=== PATIENT | male | born 1955 | race Caucasian/White ===

== ENCOUNTER 2022-07-08 12:03 | Emergency (ER) | payer MEDICARE ==
[~2022-07-08] VITALS: Ht 185.4 cm; Wt 83.9 kg
[~2022-07-08 12:03] MED LIST: ALBU90OI61; AMIT10 PO; ASPI81CH PO; ATOR20 PO; AZIT250 PO; BENZ100A PO; BUPR150ER PO; Cyclobenzaprine5 MG PO; Flomax0.4 MG PO; HYDACE10 PO; HYDACE10B PO; LEVSOD137 PO; LEVSOD175 PO; LEVSOD25 PO; LISI20 PO; LISI5 PO; METO10 PO; METO25ER PO; NAPR500 PO; OXYC10TA19 PO; PREVASTATIN PO; PROP10 PO; Percocet 5-3251 EACH PO; Prednisone20 MG PO; RANI150 PO; Valium5 MG PO; Zithromax250 MG PO; Zofran Odt8 MG SL
== END 2022-07-08 14:10 | disposition home or self-care (01) ==
LOC: ER 12:03
DX: H61.23 Impacted cerumen, bilateral (principal); I25.10 Atherosclerotic heart disease of native coronary artery without angina pectoris; I25.2 Old myocardial infarction; E03.9 Hypothyroidism, unspecified; E78.5 Hyperlipidemia, unspecified; F17.200 Nicotine dependence, unspecified, uncomplicated; Z79.899 Other long term (current) drug therapy; Z88.5 Allergy status to narcotic agent; Z79.890 Hormone replacement therapy; Z79.82 Long term (current) use of aspirin; Z95.1 Presence of aortocoronary bypass graft; Z95.5 Presence of coronary angioplasty implant and graft
CPT/HCPCS: 99282; A9270

== ENCOUNTER 2023-03-08 15:26 | Inpatient (IN) | payer OTHER ==
[~2023-03-08] VITALS: Ht 180.3 cm; Wt 74.4 kg
[~2023-03-08 15:26] MED LIST changes: -ATORVASTATIN CA20 MG PO; -Bentyl20 MG PO; -FINA5 PO; -LINZESS290 MCG PO; -METOPROLOL SUCC25 MG PO; -OMEP20ER PO; -TAMSULOSIN HCL0.4 M1 PO
[2023-03-08 17:34] LABS: Influenza A, PCR NEGATIVE (NEGATIVE); Influenza B, PCR NEGATIVE (NEGATIVE); Resp Syncytial Virus, PCR NEGATIVE (NEGATIVE); SARS-Cov-2 (COVID-19) PCR, MMC NEGATIVE (NEGATIVE)
[2023-03-08] MEDS ORDERED: Bentyl20 MG PO (19:34)
[2023-03-08] MEDS ORDERED: FINA5 PO (19:34)
[2023-03-08] MEDS ORDERED: OMEP20ER PO (19:34)
[2023-03-08] MEDS ORDERED: TAMSULOSIN HCL0.4 M1 PO (19:34)
[2023-03-08] MEDS ORDERED: LINZESS290 MCG PO (19:35)
[2023-03-08] MEDS ORDERED: ATORVASTATIN CA20 MG PO (19:35)
[2023-03-08] MEDS ORDERED: METOPROLOL SUCC25 MG PO (19:35)
[2023-03-08 21:20] VITALS: BP 120/59
--- NOTE | 2023-03-09 04:37 | NUR ---
SHIFT SUMMARY 67 YR M ADMITTED ON 03/08/23 FOR HYPONATEREMIA. DNR. PT C/O PAIN "ALL OVER" AND MOANS OUT LOUD. HE REFUSES OPIOD PAIN MEDICATION DUE TO HX OF IBS AND OTHER GI ISSUES SO HE WAS GIVEN VALIUM. NO C/O NASEAU THIS SHIFT. HE IS INDEPENDANT BUT WAS ASKED BY THIS NURSE TO CALL FOR A SBA WHEN AMBULATING TO THE BATHROOM. HE CALLS APPROPRIATELY. HE IS CURRENTLY ON A CLEAR LIQUID DIET. PT STATES HIS BM'S ARE ALWAYS LIQUID AND HAVE BEEN THAT WAY FOR A LONG TIME. THIS IS NORMAL FOR HIM.
[2023-03-09 04:46] VITALS: BP 126/59
[2023-03-09 05:36] LABS: BASOPHILS ABSOLUTE AUTO 0.02 K/mm3 (0.00-0.23); BASOPHILS PERCENT AUTO 1 % (0-2); EOSINOPHILS ABSOLUTE AUTO 0.02 K/mm3 (0.00-0.68); EOSINOPHILS PERCENT AUTO 1 % (0-6); Hematocrit 40.3 % (37.0-53.0); Hemoglobin 14.6 g/dL (13.5-17.5); IMMATURE GRAN ABSOLUTE AUTO 0.01 K/mm3 (0.00-0.10); IMMATURE GRAN PERCENT AUTO 0 % (0-1); LYMPHOCYTES ABSOLUTE AUTO 0.97 K/mm3 (0.84-5.20); LYMPHOCYTES PERCENT AUTO 35 % (21-46); MONOCYTES ABSOLUTE AUTO 0.49 K/mm3 (0.16-1.47); MONOCYTES PERCENT AUTO 18 % (4-13); Mean Corpuscular HGB 31.5 pg (26.0-34.0); Mean Corpuscular HGB Conc 36.2 g/dL (31.5-36.5); Mean Corpuscular Volume 87 fL (80-100); Mean Platelet Volume 10.5 fL (9.1-12.4); NEUTROPHILS ABSOLUTE AUTO 1.27 K/mm3 (1.96-9.15); NEUTROPHILS PERCENT AUTO 46 % (41-73); Platelet Count 108 K/mm3 (150-400); RDW Coefficient Variation 13.6 % (11.7-14.2); RDW Standard Deviation 43.8 fL (35.1-46.3); Red Blood Cell Count 4.63 M/mm3 (4.30-5.90); White Blood Cell Count 2.78 K/mm3 (4.00-11.30)
[2023-03-09 06:32] LABS: Albumin, Blood 3.5 g/dL (3.4-5.0); Albumin/Globulin Ratio 1.2 (0.8-1.8); Bilirubin, Total 0.5 mg/dL (0.1-1.0); Bun/Creatinine Ratio 13.7 (12.0-20.0); Calcium, Blood 8.4 mg/dL (8.5-10.1); Creatinine, Blood 0.73 mg/dL (0.60-1.20); Potassium, Blood 3.9 mmol/L (3.5-5.5); Total Protein, Blood 6.5 g/dL (6.4-8.2)
[2023-03-09 07:38] VITALS: BP 139/78
[2023-03-09 08:33] LABS: Source, Urine Straight Cath
[2023-03-09 08:43] LABS: Appearance, Urine Clear (Clear); Bilirubin, Urine Neg (Neg); Blood, Urine Neg (Neg); Color, Urine Yellow (P-Yellow); Glucose Qualitative, Urine Neg (Neg); Ketones, Urine 2+ (Neg); Leukocyte Esterase, Urine Neg (Neg); Nitrite, Urine Neg (Neg); Protein, Urine Neg (Neg); Specific Gravity, Urine 1.015 (1.003-1.022); Urobilinogen, Urine NORM (Normal)
--- NOTE | 2023-03-09 18:23 | NUR ---
SHIFT SUMMARY INDEPENDENT IN ROOM. REPORTS HE HAS BEEN ABLE TO VOID SINCE BEING CATHETERIZED THIS MORNING. STATES HIS HEADACHE IS BETTER WELL. STATES APPETITE IS IMPROVING AND ASKED FOR REGULAR FOOD AND ABLE TO TOLERATE LUNCH. OBTAINED LINSEZZ FROM HOME AND ADAMENT HE TAKES IT AT 0200. HAS BEEN PLEASANT THROUGH THE SHIFT.
[2023-03-09 20:25] VITALS: BP 107/59
--- NOTE | 2023-03-10 04:49 | NUR ---
END OF SHIFT SUMMARY PT SLEPT WELL THROUGHOUT THE NIGHT. PT A&O x4, CALM AND COOPERATIVE WITH CARE PROVIDED. VSS, AFEBRILE. PT DENIED ANY CHEST PAIN/SOB/GODDARD. UNEVENTFUL NIGHT, NO CALLS FROM [facility]. PRN VALIUM GIVEN AND EFFECTIVE FOR MUSCLE SPASMS. PT ABLE TO MAKE NEEDS KNOWN, CALL LIGHT WITHIN REACH, WCTM.
[2023-03-10 04:56] VITALS: BP 103/64
[2023-03-10 07:14] VITALS: BP 103/67
[2023-03-10 10:54] LABS: Bun/Creatinine Ratio 15.4 (12.0-20.0); Calcium, Blood 8.5 mg/dL (8.5-10.1); Creatinine, Blood 0.65 mg/dL (0.60-1.20); Potassium, Blood 4.3 mmol/L (3.5-5.5)
[2023-03-10 15:28] VITALS: BP 133/74
[2023-03-10 19:28] VITALS: BP 97/69
[2023-03-11 02:30] VITALS: BP 110/47
[2023-03-11 05:39] LABS: BASOPHILS ABSOLUTE AUTO 0.02 K/mm3 (0.00-0.23); BASOPHILS PERCENT AUTO 0 % (0-2); EOSINOPHILS ABSOLUTE AUTO 0.07 K/mm3 (0.00-0.68); EOSINOPHILS PERCENT AUTO 1 % (0-6); Hematocrit 39.3 % (37.0-53.0); Hemoglobin 14.1 g/dL (13.5-17.5); IMMATURE GRAN ABSOLUTE AUTO 0.02 K/mm3 (0.00-0.10); IMMATURE GRAN PERCENT AUTO 0 % (0-1); LYMPHOCYTES ABSOLUTE AUTO 1.66 K/mm3 (0.84-5.20); LYMPHOCYTES PERCENT AUTO 28 % (21-46); MONOCYTES ABSOLUTE AUTO 0.63 K/mm3 (0.16-1.47); MONOCYTES PERCENT AUTO 11 % (4-13); Mean Corpuscular HGB 31.5 pg (26.0-34.0); Mean Corpuscular HGB Conc 35.9 g/dL (31.5-36.5); Mean Corpuscular Volume 88 fL (80-100); Mean Platelet Volume 10.1 fL (9.1-12.4); NEUTROPHILS ABSOLUTE AUTO 3.55 K/mm3 (1.96-9.15); NEUTROPHILS PERCENT AUTO 60 % (41-73); Platelet Count 117 K/mm3 (150-400); RDW Coefficient Variation 13.4 % (11.7-14.2); RDW Standard Deviation 43.2 fL (35.1-46.3); Red Blood Cell Count 4.47 M/mm3 (4.30-5.90); White Blood Cell Count 5.95 K/mm3 (4.00-11.30)
--- NOTE | 2023-03-11 06:24 | NUR ---
0550: PT BEGAN TO GET AGGITATED, AND CONFUSED. PT STATED THAT HE DID NOT KNOW WHERE HE WAS. CARE STAFF ATTEMPTED TO REDIRECT PT. PT WANTS TO LEAVE AMA. THIS AUTHOR TRIED TO TALK HIM INTO STAYING UNTIL THE DOCTOR CAME TO SEE HIM. PT REFUSED. 0629: PT GATHERED ALL OF HIS BELONGINGS AND WAS SEEN PUSHING HIS WHEELCHAIR DOWN THE HALLWAY. PT ASKED THE PARK MAINTAINER WHERE THE EMERGENCY ROOM LOBBY WAS, HE PARKED HIS CAR OUTSIDE OF THE SECURITY OFFICE. TELEMETRY ELECTRODES AND IV REMOVED. PT DID AGREE TO TAKE ALL MORNING MEDICATIONS BEFORE LEAVING. SECURITY WAS NOTIFIED.
[2023-03-11 06:32] LABS: Calcium, Blood 8.5 mg/dL (8.5-10.1); Creatinine, Blood 0.64 mg/dL (0.60-1.20); Potassium, Blood 3.9 mmol/L (3.5-5.5)
== END 2023-03-11 06:30 | disposition left against medical advice (07) | DRG 641 ==
LOC: ER 15:26 → ERHOLD 15:27 → MEDS 15:27
PROVIDERS: Emergency Medicine; ADMIT Internal Medicine
DX: E87.1 Hypo-osmolality and hyponatremia (principal); I50.22 Chronic systolic (congestive) heart failure; K58.9 Irritable bowel syndrome, unspecified; R07.89 Other chest pain; I25.10 Atherosclerotic heart disease of native coronary artery without angina pectoris; Z66 Do not resuscitate; E03.9 Hypothyroidism, unspecified; F17.200 Nicotine dependence, unspecified, uncomplicated; G89.29 Other chronic pain; E78.5 Hyperlipidemia, unspecified; M54.9 Dorsalgia, unspecified; Z79.890 Hormone replacement therapy; Z79.82 Long term (current) use of aspirin; Z95.5 Presence of coronary angioplasty implant and graft; I25.2 Old myocardial infarction; Z95.0 Presence of cardiac pacemaker; Z71.6 Tobacco abuse counseling; Z88.5 Allergy status to narcotic agent; Z11.52 Encounter for screening for COVID-19; Z53.29 Procedure and treatment not carried out because of patient's decision for other reasons
CPT/HCPCS: 0241U; 36415; 80048; 80053; 81003; 83930; 83935; 84295; 84300; 84443; 84484; 85025; 93005; 93010; 94760; 94762; 99285-25; A9270; J1650; J7030

== ENCOUNTER → 2023-03-08 | Outpatient (CLI) | payer OTHER ==
[~2023-03-08] MED LIST changes: +ATORVASTATIN CA20 MG PO; +Bentyl20 MG PO; +FINA5 PO; +LINZESS290 MCG PO; +METOPROLOL SUCC25 MG PO; +OMEP20ER PO; +TAMSULOSIN HCL0.4 M1 PO
[2023-03-08 14:37] LABS: BASOPHILS ABSOLUTE AUTO 0.02 K/mm3 (0.00-0.23); BASOPHILS PERCENT AUTO 1 % (0-2); EOSINOPHILS PERCENT AUTO 0 % (0-6); Hematocrit 41.6 % (37.0-53.0); Hemoglobin 15.4 g/dL (13.5-17.5); IMMATURE GRAN ABSOLUTE AUTO 0.02 K/mm3 (0.00-0.10); IMMATURE GRAN PERCENT AUTO 1 % (0-1); LYMPHOCYTES ABSOLUTE AUTO 0.79 K/mm3 (0.84-5.20); LYMPHOCYTES PERCENT AUTO 30 % (21-46); MONOCYTES ABSOLUTE AUTO 0.45 K/mm3 (0.16-1.47); MONOCYTES PERCENT AUTO 17 % (4-13); Mean Corpuscular Volume 86 fL (80-100); NEUTROPHILS ABSOLUTE AUTO 1.37 K/mm3 (1.96-9.15); NEUTROPHILS PERCENT AUTO 52 % (41-73); RDW Coefficient Variation 13.5 % (11.7-14.2); Red Blood Cell Count 4.82 M/mm3 (4.30-5.90); White Blood Cell Count 2.65 K/mm3 (4.00-11.30)
[2023-03-08 14:59] LABS: Albumin, Blood 3.8 g/dL (3.4-5.0); Albumin/Globulin Ratio 1.1 (0.8-1.8); Bilirubin, Total 0.5 mg/dL (0.1-1.0); Bun/Creatinine Ratio 12.3 (12.0-20.0); Calcium, Blood 8.8 mg/dL (8.5-10.1); Creatinine, Blood 0.81 mg/dL (0.60-1.20); Globulin, Blood 3.4 g/dL (2.2-4.0); Potassium, Blood 4.3 mmol/L (3.5-5.5); Total Protein, Blood 7.2 g/dL (6.4-8.2)
[2023-03-08 15:38] LABS: Mean Platelet Volume 9.7 fL (9.1-12.4); Platelet Count 166 K/mm3 (150-400)
== END | disposition home or self-care (01) ==
LOC: LAB SHORT 14:33 → LAB 14:33
PROVIDERS: Chiropractor
DX: R06.00 Dyspnea, unspecified (principal); R07.9 Chest pain, unspecified; R10.9 Unspecified abdominal pain
CPT/HCPCS: 80053; 83690; 83880; 84484; 85025; 85379

== ENCOUNTER → 2024-09-04 | Outpatient (CLI) | payer OTHER ==
[~2024-09-04] MED LIST changes: +ATORVASTATIN CA20 MG PO; +Bentyl20 MG PO; +FINA5 PO; +LINZESS290 MCG PO; +METOPROLOL SUCC25 MG PO; +OMEP20ER PO; +TAMSULOSIN HCL0.4 M1 PO
== END ==
LOC: LAB 07:40 → LAB SHORT 07:40
DX: B35.1 Tinea unguium (principal); L60.2 Onychogryphosis
CPT/HCPCS: 88305; 88312

== ENCOUNTER 2025-02-02 12:12 | Emergency (ER) | payer OTHER ==
[~2025-02-02] VITALS: Ht 180.3 cm; Wt 81.7 kg
[~2025-02-02 12:12] MED LIST changes: +PLAVIX75 MG PO; +TERB250 PO
[2025-02-02 12:40] LABS: BASOPHILS ABSOLUTE AUTO 0.06 K/mm3 (0.00-0.23); BASOPHILS PERCENT AUTO 1 % (0-2); EOSINOPHILS ABSOLUTE AUTO 0.11 K/mm3 (0.00-0.68); EOSINOPHILS PERCENT AUTO 2 % (0-6); Hematocrit 37.7 % (37.0-53.0); Hemoglobin 12.8 g/dL (13.5-17.5); IMMATURE GRAN ABSOLUTE AUTO 0.02 K/mm3 (0.00-0.10); IMMATURE GRAN PERCENT AUTO 0 % (0-1); LYMPHOCYTES ABSOLUTE AUTO 0.87 K/mm3 (0.84-5.20); LYMPHOCYTES PERCENT AUTO 13 % (21-46); MONOCYTES ABSOLUTE AUTO 1.01 K/mm3 (0.16-1.47); MONOCYTES PERCENT AUTO 15 % (4-13); Mean Corpuscular HGB Conc 34.0 g/dL (31.5-36.5); Mean Corpuscular Volume 94 fL (80-100); NEUTROPHILS ABSOLUTE AUTO 4.67 K/mm3 (1.96-9.15); NEUTROPHILS PERCENT AUTO 69 % (41-73); NRBC ABSOLUTE 0.00 K/mm3 (0.00-0.02); NRBC Auto 0.0 /100 WBC (0.0-0.2); Platelet Count 159 K/mm3 (150-400); RDW Coefficient Variation 13.8 % (11.7-14.2); RDW Standard Deviation 47.3 fL (35.1-46.3)
[2025-02-02 13:04] LABS: Alanine Aminotransfer (ALT/SGP 27.0 U/L (12-78); Albumin, Blood 3.7 g/dL (3.4-5.0); Albumin/Globulin Ratio 1.2 (0.8-1.8); Anion Gap 10.0 mmol/L (3-11); Aspartate Aminotrans (AST/SGOT 24.0 U/L (12-37); Bilirubin, Total 0.5 mg/dL (0.1-1.0); Blood Urea Nitrogen 11.0 mg/dL (8-24); CO2, Blood 23.0 mmol/L (21-32); Calcium, Blood 8.7 mg/dL (8.5-10.1); Chloride, Blood 101.0 mmol/L (98-108); Creatinine, Blood 0.64 mg/dL (0.60-1.20); Globulin, Blood 3.2 g/dL (2.2-4.0); Glucose, Blood 92.0 mg/dL (70-99); Potassium, Blood 4.1 mmol/L (3.5-5.5); Sodium, Blood 130.0 mmol/L (136-145); Total Protein, Blood 6.9 g/dL (6.4-8.2)
[2025-02-02] MEDS ORDERED: Milk 150ML/Molasses 150ML (300ML Total) PR ONE (17:40)
[2025-02-02] MEDS ORDERED: MIRALAX17 GM PO (19:21)
[2025-02-02 19:26] VITALS: BP 100/67
== END 2025-02-02 19:29 | disposition home or self-care (01) ==
LOC: ER 12:12
PROVIDERS: Physician Assistant
DX: K59.00 Constipation, unspecified (principal); K21.9 Gastro-esophageal reflux disease without esophagitis; E78.5 Hyperlipidemia, unspecified; I11.0 Hypertensive heart disease with heart failure; I50.9 Heart failure, unspecified; E03.9 Hypothyroidism, unspecified; F17.210 Nicotine dependence, cigarettes, uncomplicated; Z79.02 Long term (current) use of antithrombotics/antiplatelets; Z79.899 Other long term (current) drug therapy; Z79.82 Long term (current) use of aspirin; Z88.5 Allergy status to narcotic agent
CPT/HCPCS: 71046; 74177; 80053; 83690; 84484; 85025; 93005; 93010; 99284-25; Q9967

== ENCOUNTER 2025-04-23 11:19 | Emergency (ER) | payer OTHER ==
[~2025-04-23] VITALS: Ht 180.3 cm; Wt 81.7 kg
[~2025-04-23 11:19] MED LIST changes: +MIRALAX17 GM PO
[2025-04-23] MEDS ORDERED: Morphine Sulfate 4 MG/1 ML Injection IV ONE ×2 (12:50→14:10)
[2025-04-23] MEDS ORDERED: Ondansetron HCl 2 MG / ML 2ML Vial IV ONE (12:50)
[2025-04-23 13:13] LABS: BASOPHILS ABSOLUTE AUTO 0.09 K/mm3 (0.00-0.23); BASOPHILS PERCENT AUTO 1 % (0-2); EOSINOPHILS ABSOLUTE AUTO 0.24 K/mm3 (0.00-0.68); EOSINOPHILS PERCENT AUTO 2 % (0-6); Hematocrit 36.8 % (37.0-53.0); Hemoglobin 12.6 g/dL (13.5-17.5); IMMATURE GRAN ABSOLUTE AUTO 0.09 K/mm3 (0.00-0.10); IMMATURE GRAN PERCENT AUTO 1 % (0-1); LYMPHOCYTES ABSOLUTE AUTO 2.55 K/mm3 (0.84-5.20); LYMPHOCYTES PERCENT AUTO 22 % (21-46); MONOCYTES ABSOLUTE AUTO 1.11 K/mm3 (0.16-1.47); MONOCYTES PERCENT AUTO 10 % (4-13); Mean Corpuscular HGB Conc 34.2 g/dL (31.5-36.5); Mean Corpuscular Volume 92 fL (80-100); NEUTROPHILS ABSOLUTE AUTO 7.66 K/mm3 (1.96-9.15); NEUTROPHILS PERCENT AUTO 65 % (41-73); NRBC ABSOLUTE 0.00 K/mm3 (0.00-0.02); NRBC Auto 0.0 /100 WBC (0.0-0.2); Platelet Count 152 K/mm3 (150-400); RDW Coefficient Variation 14.0 % (11.7-14.2); RDW Standard Deviation 47.7 fL (35.1-46.3)
[2025-04-23 13:25] LABS: Alanine Aminotransfer (ALT/SGP 33.0 U/L (12-78); Albumin, Blood 3.3 g/dL (3.4-5.0); Albumin/Globulin Ratio 1.0 (0.8-1.8); Anion Gap 11.0 mmol/L (3-11); Aspartate Aminotrans (AST/SGOT 18.0 U/L (12-37); Bilirubin, Total 0.7 mg/dL (0.1-1.0); Blood Urea Nitrogen 14.0 mg/dL (8-24); CO2, Blood 23.0 mmol/L (21-32); Calcium, Blood 8.7 mg/dL (8.5-10.1); Chloride, Blood 99.0 mmol/L (98-108); Creatinine, Blood 0.7 mg/dL (0.60-1.20); Globulin, Blood 3.4 g/dL (2.2-4.0); Glucose, Blood 103.0 mg/dL (70-99); Potassium, Blood 4.0 mmol/L (3.5-5.5); Sodium, Blood 129.0 mmol/L (136-145); Total Protein, Blood 6.7 g/dL (6.4-8.2)
[2025-04-23] MEDS ORDERED: Ketorolac Tromethamine 30mg Vial IV ONE (13:35)
[2025-04-23 14:01] LABS: Source, Urine Foley catheter
[2025-04-23 14:28] LABS: Bilirubin, Urine Neg (Neg); Color, Urine Yellow (P-Yellow); Glucose Qualitative, Urine Neg (Neg); Ketones, Urine Neg (Neg); Leukocyte Esterase, Urine Neg (Neg); Protein, Urine 1+ (Neg); Specific Gravity, Urine 1.015 (1.003-1.022); Urobilinogen, Urine NORM (Normal)
[2025-04-23 14:57] LABS: Red Blood Cells, Urine Not Seen /hpf (0-2); White Blood Cells, Urine 0-2 /hpf (0-5)
[2025-04-23] MEDS ORDERED: GABA300 PO (16:58)
[2025-04-23 17:38] VITALS: BP 110/61
== END 2025-04-23 17:39 | disposition home or self-care (01) ==
LOC: ER 11:19
PROVIDERS: Physician Assistant; Student in an Organized Health Care Education/Training Program
DX: R33.9 Retention of urine, unspecified (principal); R10.30 Lower abdominal pain, unspecified; M79.605 Pain in left leg; M79.604 Pain in right leg; F17.210 Nicotine dependence, cigarettes, uncomplicated; E78.5 Hyperlipidemia, unspecified; E03.9 Hypothyroidism, unspecified; K21.9 Gastro-esophageal reflux disease without esophagitis; I11.0 Hypertensive heart disease with heart failure; I50.9 Heart failure, unspecified; Z79.82 Long term (current) use of aspirin; Z79.899 Other long term (current) drug therapy; Z79.02 Long term (current) use of antithrombotics/antiplatelets; Z88.5 Allergy status to narcotic agent
CPT/HCPCS: 51702; 51798; 74177; 80053; 81001; 82550; 83605; 83690; 85025; 87086; 93005; 93010; 93925; 96374-59; 96375; 96376; 99284-25; A9270; J1885; J2270; J2405; Q9967